=== PATIENT | female | born 1980 | race American Indian/Alaskan Native ===

== ENCOUNTER 2019-07-22 10:38 | Emergency (ER) | payer SELFPAY ==
--- NOTE | 2019-07-22 11:47 | Emergency Department Report ---
Blank Doc - Documentation Documentation: 39-year-old female that presents with generalized rash and itching. Exam: Hives noted to body. No facial edema. No angioedema. No SOB or difficulty breathing. This initial assessment/diagnostic orders/clinical plan/treatment(s) is/are subject to change based on patient's health status, clinical progression and re- assessment by fellow clinical providers in the ED. Further treatment and workup at subsequent clinical providers discretion. Patient/guardians urged not to elope from the ED as their condition may be serious if not clinically assessed and managed. Initial orders include: 1- Patient sent to [facility] for further evaluation and treatment
[2019-07-22] MEDS ORDERED: diphenhydrAMINE 50 MG/ML VIAL IV ONE (14:07)
[2019-07-22] MEDS ORDERED: dexAMETHasone 20 MG/5 ML VIAL IV ONE (14:07)
[2019-07-22] MEDS ORDERED: FAMOTIDINE 20 MG/2 ML INJ IV ONE (14:07)
--- NOTE | 2019-07-22 14:15 | Emergency Department Report ---
ED Rash HPI - HPI Chief Complaint: Skin Rash Stated Complaint: BREAKOUT ALL OVER Time Seen by Provider: 07/22/19 11:45 Suspected Cause: Unknown Rash Symptoms: Yes Itching, Yes Facial Swelling, Yes Tongue/Oral Swelling, No Breathing Difficulties, No Choking Sensation, No Wheezing/Dyspnea, No Peeling, No Blistering, No Fever, No Lightheaded, No Malaise, No Myalgias Severity: moderate Other History: 39-year-old female that presents with generalized rash and itching. She denies any new detergent no new foods has not been outside in the leads no new lotions or perfumes body wash. ED Review of Systems ROS: Stated complaint: BREAKOUT ALL OVER Other details as noted in HPI Comment: All other systems reviewed and negative ED Past Medical Hx - Past Medical History Previous Medical History?: No - Surgical History Past Surgical History?: No - Medications Home Medications: Home Medications Medication Instructions Recorded Confirmed Last Taken Type Famotidine [Pepcid] 20 mg PO BID #14 tablet 07/22/19 Unknown Rx Loratadine [Claritin] 10 mg PO DAILY #14 tablet 07/22/19 Unknown Rx predniSONE [Deltasone] 50 mg PO QDAY 5 Days #5 tab 07/22/19 Unknown Rx Rash Exam - Exam General: Vital signs noted. No distress. Alert and acting appropriately. HEENT: No Periorbital Edema, No Conjuctival Injection, No Chemosis, No Perioral Edema, No Tongue Edema, No Uvular Edema, No Compromised Airway, No Drooling Lungs: Yes Good Air Exchange (Normal Breath Sounds), No Wheezes, No Ronchi, No Stridor, No Cough, No Labored Respirations, No Retractions, No Use of Accessory Muscles, No Other Abnormal Lung Sounds Heart: Yes Regular, No Murmur Skin: Yes Urticarial Rash, Yes Erythema Other: Positive: Abdomen Normal, Neurologic Normal, Musculoskeletal Normal ED Course Vital Signs 07/22/19 10:52 Temperature 98.2 F Pulse Rate 74 Respiratory 18 Rate Blood Pressure 138/87 [Left] O2 Sat by Pulse 100 Oximetry ED Medical Decision Making - Medical Decision Making 39-year-old female that presents with generalized rash and itching. She denies any new detergent no new foods has not been outside in the leads no new lotions or perfumes body wash. Critical care attestation.: If time is entered above; I have spent that time in minutes in the direct care of this critically ill patient, excluding procedure time. ED Disposition Clinical Impression: Allergic reaction, Urticaria Disposition: DC-01 TO HOME OR SELFCARE Is pt being admited?: No Does the pt Need Aspirin: No Condition: Stable Instructions: Urticaria (ED) Prescriptions: Loratadine [Claritin] 10 mg PO DAILY #14 tablet predniSONE [Deltasone] 50 mg PO QDAY 5 Days #5 tab Famotidine [Pepcid] 20 mg PO BID #14 tablet Forms: Work/School Release Form(ED)
[2019-07-22 15:54] VITALS: BP 128/91
== END 2019-07-22 15:54 | disposition home or self-care (01) ==
LOC: ED 10:38
DX: L50.0 Allergic urticaria (principal); Z79.899 Other long term (current) drug therapy
CPT/HCPCS: 96374; 96375; 99282; J1100; J1200

== ENCOUNTER 2020-05-22 10:16 | Emergency (ER) | payer SELFPAY ==
[2020-05-22 10:25] VITALS: BP 164/108
[2020-05-22] MEDS ORDERED: KETOROLAC 60 MG/2 ML INJ IM ONE (12:46)
[2020-05-22] MEDS ORDERED: MORPHINE 4 MG/1 ML INJ IM ONE (12:46)
--- NOTE | 2020-05-22 12:50 | Emergency Department Report ---
ED Back Pain/Injury HPI - General Chief Complaint: Back Pain/Injury Stated Complaint: LOW BACK/LEG/HIP PAIN Time Seen by Provider: 05/22/20 12:45 Source: patient Limitations: No Limitations - History of Present Illness Initial Comments: 40-year-old -Citizen Of [place] female presents to the emergency room complaining of severe lower back pain since Monday. Patient states that she was reaching in her closet to get a jacket when she sustained a sharp pain in her lower back that has radiated to both lower legs but on the left side it stops at her knee into the right side the pain goes all the way down to her toes and she feels needles and pins. Patient denies any injury. Patient states is been taken Motrin with the last dose at 6 AM without any relief. Patient denies any urinary or bowel incontinence. Patient states that the pain is worse with movement and better with standing a little but then the pain comes back. Patient denies any past medical history takes no medications on a daily basis and has no known drug allergies. She reports her mouth last menstrual period was 05/17/2020 and pain is a 10 out of 10. MD Complaint: back pain Onset/Timin -: days(s) Similar Symptoms Previously: No Place: home Radiation: buttocks, left leg, right leg Severity scale (0 -10): 10 Quality: sharp, stabbing, tingling Consistency: constant Improves With: supine (4-minute) Worsens With: movement, walking Context: turning/twisting Associated Symptoms: denies other symptoms Treatments Prior to Arrival: NSAIDS - Related Data Previous Rx's Medication Instructions Recorded Last Taken Type Famotidine [Pepcid] 20 mg PO BID #14 tablet 07/22/19 Unknown Rx Loratadine (Nf) [Claritin] 10 mg PO DAILY #14 tablet 07/22/19 Unknown Rx Ibuprofen [Motrin 800 MG tab] 800 mg PO Q8HR PRN #30 tablet 05/22/20 Unknown Rx predniSONE [Deltasone] 50 mg PO QDAY 5 Days #5 tab 05/22/20 Unknown Rx Allergies Allergy/AdvReac Type Severity Reaction Status Date / Time No Known Allergies Allergy Unverified 07/22/19 10:52 ED Review of Systems ROS: Stated complaint: LOW BACK/LEG/HIP PAIN Other details as noted in HPI ED Past Medical Hx - Past Medical History Previous Medical History?: No - Surgical History Past Surgical History?: No - Social History Smoking Status: Current Every Day Smoker Substance Use Type: Alcohol - Medications Home Medications: Home Medications Medication Instructions Recorded Confirmed Last Taken Type Famotidine [Pepcid] 20 mg PO BID #14 tablet 07/22/19 Unknown Rx Loratadine (Nf) [Claritin] 10 mg PO DAILY #14 tablet 07/22/19 Unknown Rx Ibuprofen [Motrin 800 MG tab] 800 mg PO Q8HR PRN #30 tablet 05/22/20 Unknown Rx predniSONE [Deltasone] 50 mg PO QDAY 5 Days #5 tab 05/22/20 Unknown Rx ED Physical Exam - General Limitations: No Limitations General appearance: alert, in distress, other (Tearful) - Head Head exam: Present: atraumatic, normocephalic - Eye Eye exam: Present: normal appearance - ENT ENT exam: Present: mucous membranes moist - Neck Neck exam: Present: full ROM - Respiratory Respiratory exam: Present: normal lung sounds bilaterally. Absent: respiratory distress - Cardiovascular Cardiovascular Exam: Present: regular rate, normal rhythm. Absent: systolic murmur, diastolic murmur, rubs, gallop - Extremities Exam Extremities exam: Present: full ROM - Back Exam Back exam: Present: tenderness - Expanded Back Exam Expanded Back exam: Sciatic Notch Tenderness: Left, Right, Positive Straight Leg Raise: Left, Right - Neurological Exam Neurological exam: Present: alert, oriented X3 - Psychiatric Psychiatric exam: Present: normal affect, normal mood, other (tearful) - Skin Skin exam: Present: warm, dry, intact, normal color. Absent: rash ED Course Vital Signs 05/22/20 05/22/20 05/22/20 10:24 13:08 13:09 Temperature 99.1 F Pulse Rate 92 H Respiratory 20 18 20 Rate Blood Pressure 164/108 [Left] O2 Sat by Pulse 98 Oximetry - Reevaluation(s) Reevaluation #1: 05/22/20 13:57 Patient reports she feels much better after having the pain medication. ED Medical Decision Making - Medical Decision Making 40-year-old -Citizen Of [place] female presents to the emergency room complaining of severe lower back pain since Monday. Patient states that she was reaching in her closet to get a jacket when she sustained a sharp pain in her lower back that has radiated to both lower legs but on the left side it stops at her knee into the right side the pain goes all the way down to her toes and she feels needles and pins. Patient denies any injury. Patient states is been taken Motrin with the last dose at 6 AM without any relief. Patient denies any urinary or bowel incontinence. Patient states that the pain is worse with movement and better with standing a little but then the pain comes back. Patient denies any past medical history takes no medications on a daily basis and has no known drug allergies. She reports her mouth last menstrual period was 05/17/2020 and pain is a 10 out of 10. Patient will be given morphine 4 mg IM and Toradol 60 mg IM. I believe patient is got a case of severe sciatica. Critical care attestation.: If time is entered above; I have spent that time in minutes in the direct care of this critically ill patient, excluding procedure time. ED Disposition Clinical Impression: Acute back pain with radiculopathy, Sciatica of left side, Sciatica of right side Disposition: DC-01 TO HOME OR SELFCARE Is pt being admited?: No Does the pt Need Aspirin: No Condition: Stable Instructions: Sciatica (ED) Additional Instructions: Please take pain medication as prescribed. Increase your water intake. Do the sciatica exercises and stretches. Follow-up with a back specialist. Prescriptions: predniSONE [Deltasone] 50 mg PO QDAY 5 Days #5 tab Ibuprofen [Motrin 800 MG tab] 800 mg PO Q8HR PRN #30 tablet PRN Reason: Pain , Severe (7-10) Referrals: PRIMARY CAREMD [Primary Care Provider] - 3-5 Days GREGORIO SOLER MD [Staff Physician] - 3-5 Days RAJAN DOMINGUEZ II, MD [Staff Physician] - 3-5 Days Forms: Work/School Release Form(ED)
== END 2020-05-22 14:07 | disposition home or self-care (01) ==
LOC: ED 10:16
DX: M54.16 Radiculopathy, lumbar region (principal); M54.32 Sciatica, left side; M54.31 Sciatica, right side; F17.200 Nicotine dependence, unspecified, uncomplicated; Z79.1 Long term (current) use of non-steroidal anti-inflammatories (NSAID); Z79.899 Other long term (current) drug therapy
CPT/HCPCS: 96372; 99282; J1885; J2270

== ENCOUNTER 2020-12-24 02:13 | Emergency (ER) | payer SELFPAY ==
[2020-12-24 03:04] LABS: Basophils # (Auto) 0.1 K/mm3 (0.0-0.1); Basophils % (Auto) 0.9 % (0.0-1.8); Eosinophils # (Auto) 0.1 K/mm3 (0.0-0.4); Eosinophils % (Auto) 1.6 % (0.0-4.3); Hematocrit 42.1 % (30.3-42.9); Hemoglobin 14.5 gm/dl (10.1-14.3); Lymphocytes # (Auto) 2.4 K/mm3 (1.2-5.4); Lymphocytes % (Auto) 31.7 % (13.4-35.0); Mean Corpuscular HGB Conc 34 % (30-34); Mean Corpuscular Volume 94 fl (79-97); Monocytes # (Auto) 0.6 K/mm3 (0.0-0.8); Monocytes % (Auto) 8.5 % (0.0-7.3); Platelet Count 314 K/mm3 (140-440); Red Blood Count 4.47 M/mm3 (3.65-5.03); Red Cell Distribution Width 13.6 % (13.2-15.2)
[2020-12-24 03:06] LABS: Bilirubin,Urine NEG (Negative); Blood,Urine SM (Negative); Color,Urine Straw (Yellow); Mucus,Urine FEW /HPF; Protein,Urine <15 mg/dL mg/dL (Negative); RBC,Urine < 1.0 /HPF (0.0-6.0); Urobilinogen,Urine < 2.0 mg/dL (<2.0)
--- NOTE | 2020-12-24 03:08 | Emergency Department Report ---
HPI - General Chief Complaint: Abdominal Pain Time Seen by Provider: 12/24/20 02:51 - HPI HPI: This is a 40-year-old -[place] female presents to the emergency department with a complaint of lower abdominal pain and urinary retention that started about 3 hours prior to presentation. Patient says that this happened 1 time previously, a few years ago, and she had to go to the emergency department to have a Oneill catheter placed. It remained in for about 4 days and was removed in the same emergency department. She never found out the reason for the urinary retention at that time. Patient says that she went to dinner this evening with her and began having some instances in which she was able to urinate but and only small amounts. This worsened throughout the evening. The patient then went 2 to 3 hours without the ability to urinate prior to presentation. A Oneill catheter was placed upon arrival to the emergency department. The patient drained about 850 cc of urine and is now asymptomatic. ED Past Medical Hx - Past Medical History Previous Medical History?: No - Surgical History Past Surgical History?: No - Social History Smoking Status: Current Every Day Smoker Substance Use Type: Alcohol, Marijuana - Medications Home Medications: Home Medications Medication Instructions Recorded Confirmed Last Taken Type Famotidine [Pepcid] 20 mg PO BID #14 tablet 07/22/19 Unknown Rx Loratadine (Nf) [Claritin] 10 mg PO DAILY #14 tablet 07/22/19 Unknown Rx Ibuprofen [Motrin 800 MG tab] 800 mg PO Q8HR PRN #30 tablet 05/22/20 Unknown Rx predniSONE [Deltasone] 50 mg PO QDAY 5 Days #5 tab 05/22/20 Unknown Rx ED Review of Systems ROS: Stated complaint: UNABLE TO URINATE/SEVERE ABD PAIN Other details as noted in HPI Comment: All other systems reviewed and negative Constitutional: denies: chills, fever Eyes: denies: eye pain, vision change ENT: denies: ear pain, throat pain Respiratory: denies: cough Cardiovascular: denies: chest pain, palpitations Gastrointestinal: abdominal pain. denies: vomiting Genitourinary: other (Urinary retention). denies: dysuria Musculoskeletal: denies: back pain, arthralgia Skin: denies: rash, lesions Neurological: denies: headache, weakness Physical Exam - Physical Exam Vital Signs: Vital Signs 12/24/20 12/24/20 02:23 02:49 Temperature 98.3 F 98.2 F Pulse Rate 34 L 70 Respiratory 20 16 Rate Blood Pressure 163/100 Blood Pressure 166/99 [Right] O2 Sat by Pulse 98 100 Oximetry Physical Exam: GENERAL: The patient is distressed due to pain. HENT: Normocephalic. Atraumatic. Patient has moist mucous membranes. EYES: Extraocular motions are intact. NECK: Supple. Trachea is midline. CHEST/LUNGS: Clear to auscultation. There is no respiratory distress noted. HEART/CARDIOVASCULAR: Regular. There is no tachycardia. There is no murmur. ABDOMEN: Abdomen is soft. Lower abdominal and/or suprapubic tenderness to palpation. Patient has normal bowel sounds. SKIN: Skin is warm and dry. NEURO: The patient is awake, alert, and oriented. The patient is cooperative. The patient has no focal neurologic deficits. Normal speech. MUSCULOSKELETAL: There is no tenderness or deformity. There is no limitation range of motion. ED Course Vital Signs 12/24/20 12/24/20 02:23 02:49 Temperature 98.3 F 98.2 F Pulse Rate 34 L 70 Respiratory 20 16 Rate Blood Pressure 163/100 Blood Pressure 166/99 [Right] O2 Sat by Pulse 98 100 Oximetry ED Medical Decision Making - Lab Data Result diagrams: 12/24/20 02:37 12/24/20 02:37 Lab Results 12/24/20 12/24/20 12/24/20 Range/Units 02:37 02:37 02:37 WBC 7.6 (4.5-11.0) K/mm3 RBC 4.47 (3.65-5.03) M/mm3 Hgb 14.5 H (10.1-14.3) gm/dl Hct 42.1 (30.3-42.9) % MCV 94 (79-97) fl MCH 32 (28-32) pg MCHC 34 (30-34) % RDW 13.6 (13.2-15.2) % Plt Count 314 (140-440) K/mm3 Lymph % (Auto) 31.7 (13.4-35.0) % Bertie % (Auto) 8.5 H (0.0-7.3) % Eos % (Auto) 1.6 (0.0-4.3) % Baso % (Auto) 0.9 (0.0-1.8) % Lymph # (Auto) 2.4 (1.2-5.4) K/mm3 Bertie # (Auto) 0.6 (0.0-0.8) K/mm3 Eos # (Auto) 0.1 (0.0-0.4) K/mm3 Baso # (Auto) 0.1 (0.0-0.1) K/mm3 Seg Neutrophils % 57.3 (40.0-70.0) % Seg Neutrophils # 4.3 (1.8-7.7) K/mm3 Sodium 135 L (137-145) mmol/L Potassium 4.1 (3.6-5.0) mmol/L Chloride 99.5 (98-107) mmol/L Carbon Dioxide 21 L (22-30) mmol/L Anion Gap 19 mmol/L BUN 10 (7-17) mg/dL Creatinine 0.8 (0.6-1.2) mg/dL Estimated GFR > 60 ml/min BUN/Creatinine Ratio 13 % Glucose 108 H (65-100) mg/dL Calcium 8.9 (8.4-10.2) mg/dL Total Bilirubin 0.30 (0.1-1.2) mg/dL AST 22 (5-40) units/L ALT 21 (7-56) units/L Alkaline Phosphatase 102 (35-129) units/L Total Protein 7.6 (6.3-8.2) g/dL Albumin 4.1 (3.9-5) g/dL Albumin/Globulin Ratio 1.2 % HCG, Qual Negative (Negative) Urine Color (Yellow) Urine Turbidity (Clear) Urine pH (5.0-7.0) Ur Specific [place] (1.003-1.030) Urine Protein (Negative) mg/dL Urine Glucose (UA) (Negative) mg/dL Urine Ketones (Negative) mg/dL Urine Blood (Negative) Urine Nitrite (Negative) Urine Bilirubin (Negative) Urine Urobilinogen (<2.0) mg/dL Ur Leukocyte Esterase (Negative) Urine WBC (Auto) (0.0-6.0) /HPF Urine RBC (Auto) (0.0-6.0) /HPF U Epithel Cells (Auto) (0-13.0) /HPF Urine Mucus /HPF 05/13/21 Range/Units 02:49 WBC (4.5-11.0) K/mm3 RBC (3.65-5.03) M/mm3 Hgb (10.1-14.3) gm/dl Hct (30.3-42.9) % MCV (79-97) fl MCH (28-32) pg MCHC (30-34) % RDW (13.2-15.2) % Plt Count (140-440) K/mm3 Lymph % (Auto) (13.4-35.0) % Bertie % (Auto) (0.0-7.3) % Eos % (Auto) (0.0-4.3) % Baso % (Auto) (0.0-1.8) % Lymph # (Auto) (1.2-5.4) K/mm3 Bertie # (Auto) (0.0-0.8) K/mm3 Eos # (Auto) (0.0-0.4) K/mm3 Baso # (Auto) (0.0-0.1) K/mm3 Seg Neutrophils % (40.0-70.0) % Seg Neutrophils # (1.8-7.7) K/mm3 Sodium (137-145) mmol/L Potassium (3.6-5.0) mmol/L Chloride (98-107) mmol/L Carbon Dioxide (22-30) mmol/L Anion Gap mmol/L BUN (7-17) mg/dL Creatinine (0.6-1.2) mg/dL Estimated GFR ml/min BUN/Creatinine Ratio % Glucose (65-100) mg/dL Calcium (8.4-10.2) mg/dL Total Bilirubin (0.1-1.2) mg/dL AST (5-40) units/L ALT (7-56) units/L Alkaline Phosphatase (35-129) units/L Total Protein (6.3-8.2) g/dL Albumin (3.9-5) g/dL Albumin/Globulin Ratio % HCG, Qual (Negative) Urine Color Straw (Yellow) Urine Turbidity Clear (Clear) Urine pH 5.0 (5.0-7.0) Ur Specific [place] 1.005 (1.003-1.030) Urine Protein <15 mg/dl (Negative) mg/dL Urine Glucose (UA) Neg (Negative) mg/dL Urine Ketones Neg (Negative) mg/dL Urine Blood Sm (Negative) Urine Nitrite Neg (Negative) Urine Bilirubin Neg (Negative) Urine Urobilinogen < 2.0 (<2.0) mg/dL Ur Leukocyte Esterase Neg (Negative) Urine WBC (Auto) < 1.0 (0.0-6.0) /HPF Urine RBC (Auto) < 1.0 (0.0-6.0) /HPF U Epithel Cells (Auto) < 1.0 (0-13.0) /HPF Urine Mucus Few /HPF - Radiology Data Radiology results: image reviewed interpreted by me: Abdominal x-ray shows nonspecific nonobstructive bowel gas. No free air. - Medical Decision Making This patient presents to the emergency department with lower abdominal pain and urinary retention. Initially the patient appears to be in some distress secondary to her pain. A Oneill catheter was placed and the patient put out 850 cc of urine. Suddenly the patient was asymptomatic and no longer in any distress. Patient has 1 previous history of this urinary retention requiring a Oneill catheter that occurred a few years ago. Labs are unremarkable including CBC, metabolic panel, urinalysis, and the patient is not . Throughout the patient's ED course she has put out close to 2 L of urine. She was reevaluated multiple times over multiple hours and has remained pain-free and stable. She will be switched to a leg bag but the Oneill catheter will otherwise remain in. She will be discharged home to follow-up with primary care and has been given a referral for urology. Critical Care Time: No Critical care attestation.: If time is entered above; I have spent that time in minutes in the direct care o f this critically ill patient, excluding procedure time. ED Disposition Clinical Impression: Urinary retention Hypertension Qualifiers: Hypertension type: essential hypertension Qualified Code(s): I10 - Essential (primary) hypertension Disposition: TO HOME OR SELFCARE Is pt being admited?: No Condition: Stable Instructions: Indwelling Urinary Catheter Care, Adult, Acute Urinary Retention, Female, Hypertension, Adult, Abdominal Pain (ED), Hypertension (ED) Additional Instructions: Please follow-up with a primary care physician in the next few days. Please follow-up with a urologist regarding your urinary retention and for potential removal of the Oneill catheter. I have given you a referral for a local urologist, Dr. Contreras. Return to the emergency department with any worsening of your symptoms, new or concerning symptoms not addressed during this current emergency department visit, or with any acute distress. Referrals: PRIMARY CARE, [Primary Care Provider] - 3-5 Days ОЛЬГА CONTRERAS MD [Staff Physician] - 3-5 Days Time of Disposition: 04:22
[2020-12-24 03:14] LABS: WBC,Urine < 1.0 /HPF (0.0-6.0)
[2020-12-24 03:24] LABS: Alanine Aminotransferase 21 units/L (7-56); Albumin 4.1 g/dL (3.9-5); BUN/Creatinine Ratio 13; Blood Urea Nitrogen 10 mg/dL (7-17); Calcium 8.9 mg/dL (8.4-10.2); Hemolysis Index 13
--- NOTE | 2020-12-24 04:44 | XRay Report ---
ABDOMEN 2 VIEW(S) INDICATION / CLINICAL INFORMATION: Abd pain. COMPARISON: None available. FINDINGS: TUBES / LINES: None. BOWEL GAS PATTERN: No significant abnormality. No free air. ADDITIONAL FINDINGS: No significant additional findings. Signer Name: Cory Quick MD Signed: 12/24/2020 4:40 AM Workstation Name: [id number]
[2020-12-24 04:46] VITALS: BP 152/88
== END 2020-12-24 04:47 | disposition home or self-care (01) ==
LOC: ED 02:13
DX: I10 Essential (primary) hypertension (principal); R33.9 Retention of urine, unspecified; F12.90 Cannabis use, unspecified, uncomplicated; F17.200 Nicotine dependence, unspecified, uncomplicated; Z79.899 Other long term (current) drug therapy
CPT/HCPCS: 36415; 51702; 74019; 80053; 81001; 84703; 85025

== ENCOUNTER 2020-12-30 16:41 | Emergency (ER) | payer SELFPAY ==
[2020-12-30 17:34] VITALS: BP 150/90
--- NOTE | 2020-12-30 19:20 | Emergency Department Report ---
ED General Adult HPI - General Chief complaint: Urogenital-Female Stated complaint: CATH REMOVED Time Seen by Provider: 12/30/20 18:39 Source: patient Mode of arrival: Ambulatory Limitations: No Limitations - History of Present Illness Initial comments: 40-year-old F Mal[place]ian female presents to the emergency department after having some urinary retention issues resulting in a Oneill placement 1 week ago and states that she is due to have a Oneill catheter removed she is to follow-up with with with urology in about 1 week but a paperwork which she pres ents with advised her Oneill catheter to be removed at the 5-day gio. She reports no fever, chills, sweats, no flank pain states that she is been pain- free since the Oneill has been in place Radiation: non-radiation Severity scale (0 -10): 0 Worsens with: none Associated Symptoms: denies other symptoms - Related Data Previous Rx's Medication Instructions Recorded Last Taken Type Famotidine [Pepcid] 20 mg PO BID #14 tablet 07/22/19 Unknown Rx Loratadine (Nf) [Claritin] 10 mg PO DAILY #14 tablet 07/22/19 Unknown Rx Ibuprofen [Motrin 800 MG tab] 800 mg PO Q8HR PRN #30 tablet 05/22/20 Unknown Rx predniSONE [Deltasone] 50 mg PO QDAY 5 Days #5 tab 05/22/20 Unknown Rx Allergies Allergy/AdvReac Type Severity Reaction Status Date / Time No Known Allergies Allergy Unverified 07/22/19 10:52 ED Review of Systems ROS: Stated complaint: CATH REMOVED Other details as noted in HPI Comment: All other systems reviewed and negative ED Past Medical Hx - Past Medical History Previous Medical History?: No - Surgical History Past Surgical History?: No - Social History Smoking Status: Current Every Day Smoker - Medications Home Medications: Home Medications Medication Instructions Recorded Confirmed Last Taken Type Famotidine [Pepcid] 20 mg PO BID #14 tablet 07/22/19 Unknown Rx Loratadine (Nf) [Claritin] 10 mg PO DAILY #14 tablet 07/22/19 Unknown Rx Ibuprofen [Motrin 800 MG tab] 800 mg PO Q8HR PRN #30 tablet 05/22/20 Unknown Rx predniSONE [Deltasone] 50 mg PO QDAY 5 Days #5 tab 05/22/20 Unknown Rx ED Physical Exam - General Limitations: No Limitations General appearance: alert, in no apparent distress - Head Head exam: Present: atraumatic, normocephalic - Eye Eye exam: Present: normal appearance - ENT ENT exam: Present: mucous membranes moist - Neck Neck exam: Present: normal inspection - Respiratory Respiratory exam: Present: normal lung sounds bilaterally. Absent: respiratory distress - Cardiovascular Cardiovascular Exam: Present: regular rate, normal rhythm. Absent: systolic murmur, diastolic murmur, rubs, gallop - GI/Abdominal GI/Abdominal exam: Present: soft, normal bowel sounds - Extremities Exam Extremities exam: Present: normal inspection - Back Exam Back exam: Present: normal inspection - Neurological Exam Neurological exam: Present: alert, oriented X3 - Psychiatric Psychiatric exam: Present: normal affect, normal mood - Skin Skin exam: Present: warm, dry, intact, normal color. Absent: rash ED Course Vital Signs 12/30/20 17:30 Temperature 98.5 F Pulse Rate 74 Respiratory 18 Rate Blood Pressure 150/90 O2 Sat by Pulse 100 Oximetry - Reevaluation(s) Reevaluation #1: 12/30/20 19:20 10 for the Oneill catheter [facility] attestation.: If time is entered above; I have spent that time in minutes in the direct care of this critically ill patient, excluding procedure time. ED Disposition Clinical Impression: Encounter for Oneill catheter removal Disposition: DC-01 TO HOME OR SELFCARE Is pt being admited?: No Does the pt Need Aspirin: No Condition: Stable Instructions: Dysuria Additional Instructions: Please keep your follow-up appointment with Lata mcdonough on Monday, January 05 but you may return to the emergency department should your urinary symptoms reemerge as we discussed. Referrals: [facility] [Provider Group] - 3-5 Days
== END 2020-12-30 19:50 | disposition home or self-care (01) ==
LOC: ED 16:41
DX: Z46.6 Encounter for fitting and adjustment of urinary device (principal); F17.200 Nicotine dependence, unspecified, uncomplicated; Z79.899 Other long term (current) drug therapy
CPT/HCPCS: 99282